=== PATIENT | female | born 1950 | race Caucasian/White ===

== ENCOUNTER 2021-04-18 06:47 | Inpatient (IN) ==
[2021-04-18] MEDS ORDERED: Albumin Human 5% 0 GM/0 ML IV.SOLN ONE (07:23)
[2021-04-18] MEDS ORDERED: *HR* Vasopressin 20 UNIT/ML VIAL ONE (07:23)
[2021-04-18] MEDS ORDERED: Heparin 1,000 UNITS/500 mL 500 ML ONE ×2 (07:28→09:19)
[2021-04-18] MEDS ORDERED: CeFAZolin Syr 2,000MG/20 ML 2,000 MG/20 ML SYRINGE IVPB ONE (07:32)
[2021-04-18] MEDS ORDERED: Lidocaine -MPF 4% 5 ML AMPUL ONE (07:39)
[2021-04-18] MEDS: Ringers Solution, Lactated 1,000 ML IVC SCH ×2 (07:45→10:30)
[2021-04-18] MEDS ORDERED: *HR* Midazolam HCl 2 MG/2 ML VIAL ONE (07:49)
[2021-04-18] MEDS ORDERED: Ondansetron 4 MG/2 ML VIAL ONE (07:50)
[2021-04-18] MEDS ORDERED: *HR* Heparin 5,000 UNIT/ML VIAL ONE (07:50)
[2021-04-18] MEDS ORDERED: *HR* FentaNYL (PF) 100 MCG/2 ML VIAL ONE ×2 (07:50→10:29)
[2021-04-18] MEDS ORDERED: *HR* Rocuronium Bromide 50 MG/5 ML VIAL ONE ×2 (07:50→11:39)
[2021-04-18] MEDS ORDERED: Lidocaine -MPF 2% 5 ML VIAL ONE ×2 (07:50→09:22)
[2021-04-18] MEDS ORDERED: *HR* Succinylcholine 200 MG/10 ML VIAL IVP ONE (07:50)
[2021-04-18] MEDS ORDERED: *HR* Propofol 200 MG/20 ML VIAL IVP ONE (07:50)
[2021-04-18] MEDS ORDERED: Sugammadex Sodium 200 MG/2 ML VIAL IV ONE ×3 (07:50→13:26)
[2021-04-18] MEDS ORDERED: *HR* Phenylephrine 10 MG/ML VIAL ONE ×2 (07:51→08:14)
[2021-04-18] MEDS ORDERED: Vancomycin 1,000 MG, 0.9 % Sodium Chloride 1,000 ML IR ONE (08:00)
[2021-04-18] MEDS ORDERED: niCARdipine 0 MG/0 ML MLS IVC ONE (08:09)
[2021-04-18] MEDS ORDERED: NiCARdipine 2.5 MG/10 ML Syringe IVPB ONE (08:09)
[2021-04-18] MEDS ORDERED: *HR* OxyCODONE Immed Rel 5 MG TABLET PO ONE (08:28)
[2021-04-18] MEDS ORDERED: Acetaminophen IV 1,000 MG/100 ML BAG IVPB ONE (08:28)
[2021-04-18] MEDS ORDERED: *HR* OxyCODONE Immed Rel 5 MG TABLET PO PRN (08:28)
[2021-04-18] MEDS ORDERED: Ondansetron 4 MG/2 ML VIAL IVP PRN ×2 (08:28→17:12)
[2021-04-18] MEDS ORDERED: *HR* FentaNYL (PF) 100 MCG/2 ML VIAL IVP PRN (08:28)
[2021-04-18] MEDS ORDERED: Famotidine 20 MG/2 ML VIAL IVP ONE (08:28)
[2021-04-18] MEDS ORDERED: Ipratropium Neb 0.5 MG NEBULIZER IH PRN (08:48)
[2021-04-18] MEDS ORDERED: Ipratropium/Albuterol Neb 3 ML IH ONE (08:48)
[2021-04-18] MEDS ORDERED: Bupivacaine-MPF 0.25% 10 ML VIAL ONE (09:19)
[2021-04-18] MEDS ORDERED: Vancomycin 1,000 MG VIAL ONE (09:20)
[2021-04-18] MEDS ORDERED: *HR* HYDROMORPHONE 2 MG/ML VIAL ONE (11:39)
[2021-04-18] MEDS ORDERED: Naloxone 0.4 MG/ML INJ ONE (13:33)
[2021-04-18] MEDS ORDERED: *HR* Labetalol 20 MG/4 ML SYRINGE IVP ONE (13:38)
[2021-04-18] MEDS: *HR* HYDROmorphone PF 0.5 MG/0.5 ML SYRINGE IVP PRN ×2 (14:02→14:13)
[2021-04-18] MEDS ORDERED: *HR* Labetalol 20 MG/4 ML SYRINGE IVP PRN (17:12)
[2021-04-18] MEDS ORDERED: Acetaminophen 325 MG TABLET PO PRN (17:12)
[2021-04-18] MEDS ORDERED: 0.9 % Sodium Chloride 1,000 ML IVC SCH (17:12)
[2021-04-18] MEDS ORDERED: *HR* HYDROcodone/Acet 5/325 mg TABLET PO PRN (17:12)
[2021-04-18] MEDS ORDERED: Naloxone 0.4 MG/ML INJ IVP PRN (17:12)
[2021-04-18] MEDS: *HR* Metoprolol 5 MG/5 ML VIAL IVP SCH (19:24)
[2021-04-19] MEDS: *HR* OxyCODONE Immed Rel 5 MG TABLET PO PRN ×2 (00:07→09:33)
[2021-04-19] MEDS: *HR* Metoprolol 5 MG/5 ML VIAL IVP SCH ×4 (00:10→11:48)
[2021-04-19 04:45] LABS: BUN/Creatinine Ratio 19 (6-26); Blood Urea Nitrogen 16 mg/dL (8-23); Carbon Dioxide 26 mEq/L (23-29); Chloride 109 mEq/L (98-107); Glucose 113 mg/dL (70-105); Osmolality,Calculated 284 (280-300); Potassium 4.5 mEq/L (3.5-5.1); Sodium 136 mEq/L (136-145); eGFR For African Americans > 60 (> 60); eGFR For Non-African Americans > 60 (> 60)
[2021-04-19 04:51] LABS: Basophils % 0.3 %; Hematocrit 34.2 % (35.3-44.9); Immature Granulocytes % 0.5 % (0-4); Lymphocytes # 2.3 K/mcL (0.6-4.6); Lymphocytes % 17.1 %; Mean Corpuscular HGB Conc 32.2 g/dL (31.6-35.5); Mean Corpuscular Hemoglobin 31.3 pg (28.0-33.3); Mean Corpuscular Volume 97.2 fL (83.0-100.0); Mean Platelet Volume 11.5 fL (9.4-12.4); Monocytes # 0.9 K/mcL (0.0-1.3); Neutrophils # 9.8 K/mcL (1.6-8.9); Platelet Count 224 K/mcL (140-400); Red Blood Count 3.52 M/mcL (3.82-4.97); Red Cell Distribution Width 13.9 % (11.5-14.5); Segmented Neutrophils % 75.1 %; White Blood Count 13.1 K/mcL (4.3-11.1)
[2021-04-19] MEDS ORDERED: *HR* Heparin 5,000 UNIT/ML VIAL SQ SCH ×2 (06:00)
[2021-04-19] MEDS ORDERED: lisinopriL 20 MG TABLET PO SCH (09:00)
[2021-04-19] MEDS ORDERED: Aspirin Enteric Coated 81 MG Tablet PO SCH (09:00)
[2021-04-19 11:35] VITALS: BP 115/24; PULSE 73; TEMP 98.2; O2SAT 94
== END 2021-04-19 14:39 | disposition home or self-care (01) | DRG 254 ==
LOC: SAMDAY 06:47 → 2NNU 17:05
PROVIDERS: ADMIT Surgery; ATTEND Surgery